=== PATIENT | female | born 1975 | race Caucasian/White ===

== ENCOUNTER 2018-08-26 13:00 | Day surgery (SDC) | payer MEDICAID ==
[~2018-08-26] VITALS: Ht 152.4 cm; Wt 71.7 kg
[~2018-08-26 13:00] MED LIST: DIPHENHYDRAMINE INJ 50 MG/ML VIAL ONE; MIDAZOLAM HCL 5 MG/5 ML VIAL ONE
[2018-08-26] MEDS ORDERED: LIDOCAINE 2%, 20 ML MDV INJ ONE (13:01)
[2018-08-26] MEDS ORDERED: IOHEXOL 300 mgI/mL, 50 mL INFUS..BTL IV ONE (13:01)
[2018-08-26] MEDS ORDERED: methylPREDNISolone ACETATE 80 MG/ML IM ONE (13:01)
[2018-08-26] MEDS ORDERED: BUPIVACAINE /PF 0.25% 30 ML VIAL INJ ONE (13:01)
[2018-08-26 13:41] LABS: HCG,QUAL RESULT NEGATIVE (NEGATIVE)
[2018-08-26] MEDS ORDERED: DIPHENHYDRAMINE INJ 50 MG/ML VIAL IVP ONE (15:04)
[2018-08-26] MEDS ORDERED: MIDAZOLAM HCL 5 MG/5 ML VIAL IVP ONE (15:05)
[2018-08-26 17:12] VITALS: BP_SYST 124
== END 2018-08-26 16:05 | disposition home or self-care (01) ==
LOC: SDS 13:00
PROVIDERS: ATTEND Internal Medicine
DX: M51.16 Intervertebral disc disorders with radiculopathy, lumbar region (principal); M79.10 Myalgia, unspecified site; Z79.899 Other long term (current) drug therapy; Z98.890 Other specified postprocedural states
CPT/HCPCS: 62323; 84703; J1040; J1200; J2001; J2250; J3490; Q9967

== ENCOUNTER 2019-12-24 09:14 | Day surgery (SDC) | payer MEDICAID ==
[~2019-12-24] VITALS: Ht 152.4 cm; Wt 68.9 kg
[2019-12-24 09:38] LABS: HCG,QUAL RESULT NEGATIVE (NEGATIVE)
[2019-12-24] MEDS ORDERED: DIPHENHYDRAMINE INJ 50 MG/ML VIAL ONE ×2 (10:40→11:18)
[2019-12-24] MEDS ORDERED: MIDAZOLAM HCL 5 MG/5 ML VIAL ONE ×2 (10:40→11:18)
[2019-12-24 13:18] VITALS: BP_SYST 112
[2019-12-24] MEDS ORDERED: methylPREDNISolone ACETATE 40 MG/ML IU ONE (14:00)
[2019-12-24] MEDS ORDERED: BUPIVACAINE /PF 0.25% 30 ML VIAL INJ ONE (14:00)
== END 2019-12-24 12:30 | disposition home or self-care (01) ==
LOC: SMU 09:14 → SDS 09:14
PROVIDERS: ATTEND Internal Medicine
DX: M51.16 Intervertebral disc disorders with radiculopathy, lumbar region (principal); G89.4 Chronic pain syndrome; M19.90 Unspecified osteoarthritis, unspecified site; Z79.899 Other long term (current) drug therapy
CPT/HCPCS: 62323; 84703; J1030; J1200; J2250; J3490; J7120; 76000

== ENCOUNTER 2020-07-05 07:54 | Day surgery (SDC) | payer MEDICAID, SELFPAY ==
--- NOTE | 2020-07-04 11:37 | NUR ---
Patient called [facility] to receive her COVID "Not Detected" result and was recommended to follow preventive measures ([facility]). Patient verbalizes understanding.
[~2020-07-05] VITALS: Ht 152.4 cm; Wt 72.6 kg
[2020-07-05] MEDS ORDERED: LIDOCAINE 1% 10 MG/ML, 20 ML MDV INJ ONE (07:55)
[2020-07-05] MEDS ORDERED: IOPAMIDOL 50 ML VIAL IV ONE (07:55)
[2020-07-05] MEDS ORDERED: methylPREDNISolone ACETATE 40 MG/ML IM ONE (07:55)
[2020-07-05] MEDS ORDERED: BUPIVACAINE /PF 0.25% 30 ML VIAL INJ ONE (07:55)
[2020-07-05 08:27] LABS: HCG,QUAL RESULT NEGATIVE (NEGATIVE)
[2020-07-05] MEDS ORDERED: MIDAZOLAM HCL 5 MG/5 ML VIAL ONE (08:59)
[2020-07-05] MEDS ORDERED: DIPHENHYDRAMINE INJ 50 MG/ML VIAL ONE (08:59)
[2020-07-05 13:20] VITALS: BP_SYST 137
== END 2020-07-05 11:30 | disposition home or self-care (01) ==
LOC: SDS 07:54 → SMU 07:56 → SDS 11:30
PROVIDERS: ATTEND Internal Medicine
DX: M51.16 Intervertebral disc disorders with radiculopathy, lumbar region (principal); M54.2 Cervicalgia; G89.4 Chronic pain syndrome; Z20.828 Contact with and (suspected) exposure to other viral communicable diseases; Z79.899 Other long term (current) drug therapy
CPT/HCPCS: 62323; 84703; J1030; J1200; J2001; J2250; J3490; J7120; Q9967; U0003; 76000

== ENCOUNTER 2021-12-05 07:00 | Day surgery (SDC) | payer MEDICAID, SELFPAY ==
[~2021-12-05] VITALS: Ht 157.5 cm; Wt 74.8 kg
[2021-12-05] MEDS ORDERED: methylPREDNISolone ACETATE 40 MG/ML IM ONE (07:01)
[2021-12-05] MEDS ORDERED: BUPIVACAINE /EPINEPHRINE/PF 0.25% 30 ML VIAL INJ ONE (07:01)
[2021-12-05] MEDS ORDERED: LIDOCAINE 2%, 20 ML MDV INJ ONE (07:01)
[2021-12-05] MEDS ORDERED: NS 1000 ML IV.SOLN IV ONE (07:01)
[2021-12-05] MEDS ORDERED: ISOVUE-300 (IOPAMIDOL) 100 ML INFUS..BTL IV ONE (07:01)
[2021-12-05 07:58] LABS: HCG,QUAL RESULT NEGATIVE (NEGATIVE)
[2021-12-05] MEDS ORDERED: MIDAZOLAM HCL 5 MG/5 ML VIAL ONE (08:55)
[2021-12-05] MEDS ORDERED: DIPHENHYDRAMINE INJ 50 MG/ML VIAL ONE (08:55)
[2021-12-05 17:08] VITALS: BP_SYST 138
== END 2021-12-05 10:30 | disposition home or self-care (01) ==
LOC: SDS 07:00 → SMU 07:01 → SDS 10:30
PROVIDERS: ATTEND Internal Medicine
DX: M51.16 Intervertebral disc disorders with radiculopathy, lumbar region (principal); G89.4 Chronic pain syndrome; M19.90 Unspecified osteoarthritis, unspecified site; Z20.822 Contact with and (suspected) exposure to COVID-19; Z79.899 Other long term (current) drug therapy
CPT/HCPCS: 36415; 62323; 84703; 87426; J1030; J1200; J2001; J2250; J3490; J7030; Q9967; U0003; 76000

== ENCOUNTER 2024-05-19 07:55 | Day surgery (SDC) | payer MEDICAID ==
[~2024-05-19] VITALS: Ht 157.5 cm; Wt 79.8 kg
[2024-05-19] MEDS ORDERED: MIDAZOLAM HCL 5 MG/5 ML VIAL ONE ×2 (09:30→10:55)
[2024-05-19] MEDS ORDERED: fentaNYL CITRATE/PF 100 MCG/2 ML AMP ONE ×2 (09:30→10:55)
[2024-05-19 10:15] LABS: HCG,QUAL RESULT NEGATIVE (NEGATIVE)
[2024-05-19] MEDS: DIPHENHYDRAMINE INJ 50 MG/ML VIAL ONE (10:42)
[2024-05-19] MEDS: fentaNYL CITRATE/PF 100 MCG/2 ML AMP IVP ONE (10:58)
[2024-05-19 14:09] VITALS: O2SAT 99
[2024-05-19 16:22] VITALS: BP_SYST 117; PULSE 72; RESP 18
== END 2024-05-19 12:03 | disposition home or self-care (01) ==
LOC: SDS 07:55 → SMU 07:57 → SDS 12:03
PROVIDERS: ATTEND Internal Medicine
DX: M51.16 Intervertebral disc disorders with radiculopathy, lumbar region (principal); M79.10 Myalgia, unspecified site; I10 Essential (primary) hypertension; K21.9 Gastro-esophageal reflux disease without esophagitis; G47.30 Sleep apnea, unspecified; J45.909 Unspecified asthma, uncomplicated; M19.90 Unspecified osteoarthritis, unspecified site; Z87.891 Personal history of nicotine dependence; Z90.49 Acquired absence of other specified parts of digestive tract; Z98.890 Other specified postprocedural states
CPT/HCPCS: 62323; 84703; J1200; J2250; J3010; 76000